=== PATIENT | male | born 1935 | race Caucasian/White ===

== ENCOUNTER 2016-04-08 12:26 | Emergency (ER) | payer MEDICARE, BC ==
[2016-04-08 12:32] VITALS: TEMP 98
[2016-04-08] MEDS ORDERED: SODIUM CHLORIDE 0.9% 500 ML IV STA (13:05)
[2016-04-08] MEDS ORDERED: HYDROmorphone 1 MG/ML 1 ML SYRINGE IVP STA (13:05)
[2016-04-08] MEDS ORDERED: ONDANSETRON 4 MG/2 ML VIAL IVP STA (13:05)
--- NOTE | 2016-04-08 13:08 | ED ---
General Adult HPI - General Chief complaint: Extremity Injury, Lower Stated complaint: Weakness Time Seen by Provider: 04/08/16 12:35 Source: patient, RN notes reviewed Mode of arrival: EMS Limitations: no limitations - History of Present Illness Initial comments: This is a 80-year-old male who is on hospice for his end-stage COPD. Patient got significantly weaker this morning was unable to get out of his chair to walk across the room so family called EMS and brought him into the emergency department. Patient states he also was having pain on his left thigh were used to have shingles and that is been chronic. Family states this happened once before and he had a urinary tract infection. Daughter states she's also had some mental status changes that are been intermittent and now he is at his baseline but earlier today he was not. Daughter states she has not noted any fever has not seen him coughing. There's been no vomiting or diarrhea. There' s been no recent injury or trauma that the family knows of. Patient does not complain of any chest pain patient is not complaining of any back pain. - Related Data Home Medications Medication Instructions Recorded Confirmed Aspirin 81 mg PO DAILY 12/08/14 04/08/16 Famotidine [Pepcid] 20 mg PO DAILY 12/08/14 04/08/16 Furosemide [Lasix] 80 mg PO BID 12/08/14 04/08/16 Ipratropium Nebulized [Atrovent 0.5 mg INHALATION RT-QID PRN 12/08/14 04/08/16 Nebulized] Isosorbide Mononitrate ER [Imdur] 30 mg PO DAILY 12/08/14 04/08/16 Lovastatin [Mevacor] 20 mg PO HS 12/08/14 04/08/16 glyBURIDE [Diabeta] 2.5 mg PO HS 12/08/14 04/08/16 Metolazone [Zaroxolyn] 2.5 mg PO TUFR 03/02/15 04/08/16 Gabapentin [Neurontin] 300 mg PO TID 01/09/16 04/08/16 Levothyroxine Sodium [Synthroid] 50 mcg PO DAILY 01/09/16 04/08/16 Albuterol Nebulized [Ventolin 2.5 mg INHALATION QID PRN 04/08/16 04/08/16 Nebulized] Allopurinol [Zyloprim] 300 mg PO DAILY 04/08/16 04/08/16 Amiodarone [Cordarone] 100 mg PO DAILY 04/08/16 04/08/16 Amitriptyline HCl [Elavil] 25 mg PO HS 04/08/16 04/08/16 PARoxetine HCL [Paxil] 30 mg PO DAILY 04/08/16 04/08/16 Potassium Chloride [Klor-Con 20] 20 meq PO DAILY 04/08/16 04/08/16 Warfarin [Coumadin] 5 mg PO SUMOWETHSA 04/08/16 04/08/16 Warfarin [Coumadin] 5 mg PO TUFR 04/08/16 04/08/16 fentaNYL 25MCG/HR PATCH [Duragesic 1 patch TRANSDERM Q72H 04/08/16 04/08/16 25MCG/HR] metFORMIN HCL [Glucophage] 1,000 mg PO DAILY 04/08/16 04/08/16 metFORMIN HCL [Glucophage] 500 mg PO HS 04/08/16 04/08/16 Previous Rx's Medication Instructions Recorded ALPRAZolam [Xanax] 0.5 mg PO BID #20 tab 01/12/16 Allergies Allergy/AdvReac Type Severity Reaction Status Date / Time No Known Allergies Allergy Verified 04/08/16 13:18 Review of Systems ROS Statement: Those systems with pertinent positive or pertinent negative responses have been documented in the HPI. ROS Other: All systems not noted in ROS Statement are negative. Past Medical History Past Medical History: Atrial Fibrillation, Coronary Artery Disease (CAD), Cancer , Heart Failure, COPD, Diabetes Mellitus, GERD/Reflux, Hyperlipidemia, Hypertension, Osteoarthritis (OA), Sleep Apnea/CPAP/BIPAP, Thyroid Disorder Additional Past Medical History / Comment(s): HAS CURRENT WOUND ON RIGHT SIDE OF NOSE, AND SKYLAR LEGS, BEING TX WITH TOPICAL OINT. hypoventilation syndrome/ pickwickian syndrome and right-sided heart failure/cor pulmonale, gout, hiatal hernia, chronic hypoxic respiratory failure maintain oxygen 5-6 L/m nasal cannula, peripheral vascular disease, HX OF SKIN CA, USES BIPAP History of Any Multi-Drug Resistant Organisms: VRE Date of last positivie culture/infection: 11/03/14 MDRO Source:: Left Leg Past Surgical History: Coronary Bypass/CABG, Heart Catheterization, Orthopedic Surgery Additional Past Surgical History / Comment(s): HYDROCELE, AAA REPAIR, TRIPLE VESSEL CABG APPROX 24 YEARS AGO,SKIN CANCER REMOVED.SKYLAR CATARACT SX, LT ROTATOR CUFF Past Anesthesia/Blood Transfusion Reactions: No Reported Reaction Date of Last Stent Placement:: 1986 Past Psychological History: Anxiety, Depression Additional Psychological History / Comment(s): . Smoking Status: Former smoker Past Alcohol Use History: Rare Additional Past Alcohol Use History / Comment(s): SMOKED X 30 YEARS, QUIT 1990 Past Drug Use History: None Reported - Past Family History Daughter(s) Family Medical History: Cancer Additional Family Medical History / Comment(s): BREAST, LUNG Father Family Medical History: Cancer, Prostate Disorder Additional Family Medical History / Comment(s): PROSTATE CANCER Mother Family Medical History: No Reported History Additional Family Medical History / Comment(s): LIVED TO BE 89 General Exam - General Exam Comments Initial Comments: GENERAL: Patient is well-developed and well-nourished. Patient is nontoxic and well- hydrated and is in mild distress. ENT: Neck is soft and supple. No significant lymphadenopathy is noted. Oropharynx is clear. Moist mucous membranes. Neck has full range of motion without eliciting any pain. EYES: The sclera were anicteric and conjunctiva were pink and moist. Extraocular movements were intact and pupils were equal round and reactive to light. Eyelids were unremarkable. PULMONARY: Diminished breath sounds throughout CARDIOVASCULAR: There is a regular rate and rhythm without any murmurs gallops or rubs. ABDOMEN: Soft and nontender with normal bowel sounds. No palpable organomegaly was noted. There is no palpable pulsatile mass. SKIN: Skin is clear with no lesions or rashes and otherwise unremarkable. NEUROLOGIC: Patient is alert and oriented 2. Cranial nerves II through XII are grossly intact. Motor and sensory are also intact. Normal speech, volume and content. Symmetrical smile. MUSCULOSKELETAL: Normal extremities with adequate strength and full range of motion. Chronic bilateral cellulitis LYMPHATICS: No significant lymphadenopathy is noted PSYCHIATRIC: Normal psychiatric evaluation. Limitations: no limitations Course Vital Signs 04/08/16 04/08/16 04/08/16 12:28 14:52 14:56 Temperature 98.0 F Pulse Rate 62 79 Respiratory 17 18 Rate Blood Pressure 123/63 127/92 O2 Sat by Pulse 88 L 68 L 82 L Oximetry 01/22/17 01/22/17 15:15 15:29 Temperature Pulse Rate 79 85 Respiratory Rate Blood Pressure O2 Sat by Pulse Oximetry Medical Decision Making - Medical Decision Making EKG is a poor quality shows sinus rhythm at 65 beats a minute NV interval appears to be 06/05/2011 QRS is 120 QT interval 410 QTC is [address] segment elevations that I can note but it is significantly poor quality EKG. Patient became alert and more combative family called me in the room he took the oxygen off and ripped it off didn't want it and according to family he's DO NOT RESUSCITATE and if he doesn't want the oxygen they do not want to give him the oxygen. Patient was barely responsive and they said this was fine and they wanted the patient to be left alone and if he passes away he . I went back in the room the patient was no longer breathing his heart rate was in the low 20s and patient had no pulses. I spoke with I pronounced him at 3:58 PM. I spoke with Laura Vizcaino and she released the body. - Lab Data Result diagrams: 04/08/16 13:34 04/08/16 13:34 Lab Results 04/08/16 04/08/16 04/08/16 Range/Units 13:11 13:34 13:34 WBC 8.4 (3.8-10.6) k/uL RBC 4.56 (4.30-5.90) m/uL Hgb 14.3 (13.0-17.5) gm/dL Hct 43.2 (39.0-53.0) % MCV 94.8 (80.0-100.0) fL MCH 31.2 (25.0-35.0) pg MCHC 33.0 (31.0-37.0) g/dL RDW 15.7 H (11.5-15.5) % Plt Count 244 (150-450) k/uL Neutrophils % 70 % Lymphocytes % 18 % Monocytes % 7 % Eosinophils % 2 % Basophils % 1 % Neutrophils # 5.9 (1.3-7.7) k/uL Lymphocytes # 1.5 (1.0-4.8) k/uL Monocytes # 0.6 (0-1.0) k/uL Eosinophils # 0.1 (0-0.7) k/uL Basophils # 0.1 (0-0.2) k/uL PT (9.0-12.0) sec INR (<1.1) APTT (22.0-30.0) sec Sample Site ABG pH (7.35-7.45) ABG pCO2 (35-45) mmHg ABG pO2 (83-108) mmHg ABG HCO3 (21-25) mmol/L ABG Total CO2 (19-24) mmol/L ABG O2 Saturation (94-97) % ABG Base Excess mmol/L FiO2 % Sodium (137-145) mmol/L Potassium (3.5-5.1) mmol/L Chloride (98-107) mmol/L Carbon Dioxide (22-30) mmol/L Anion Gap mmol/L BUN (9-20) mg/dL Creatinine (0.66-1.25) mg/dL Est GFR (MDRD) Af Amer (>60 ml/min/1.73 sqM) Est GFR (MDRD) Non-Af (>60 ml/min/1.73 sqM) Glucose (74-99) mg/dL Calcium (8.4-10.2) mg/dL Magnesium (1.6-2.3) mg/dL Total Bilirubin (0.2-1.3) mg/dL AST (17-59) U/L ALT (21-72) U/L Alkaline Phosphatase (38-126) U/L Total Creatine Kinase 102 (55-170) U/L CK-MB (CK-2) 1.4 (0.0-2.4) ng/mL CK-MB (CK-2) Rel Index 1.4 Troponin I 0.064 H* (0.000-0.034) ng/mL NT-Pro-B Natriuret Pep pg/mL Total Protein (6.3-8.2) g/dL Albumin (3.5-5.0) g/dL Urine Color Light Yellow Urine Appearance Clear (Clear) Urine pH 7.0 (5.0-8.0) Ur Specific Concrete 1.005 (1.001-1.035) Urine Protein Negative (Negative) Urine Glucose (UA) Negative (Negative) Urine Ketones Negative (Negative) Urine Blood Negative (Negative) Urine Nitrate Negative (Negative) Urine Bilirubin Negative (Negative) Urine Urobilinogen <2.0 (<2.0) mg/dL Ur Leukocyte Esterase Negative (Negative) 04/08/16 04/08/16 04/08/16 Range/Units 13:34 13:34 13:34 WBC (3.8-10.6) k/uL RBC (4.30-5.90) m/uL Hgb (13.0-17.5) gm/dL Hct (39.0-53.0) % MCV (80.0-100.0) fL MCH (25.0-35.0) pg MCHC (31.0-37.0) g/dL RDW (11.5-15.5) % Plt Count (150-450) k/uL Neutrophils % % Lymphocytes % % Monocytes % % Eosinophils % % Basophils % % Neutrophils # (1.3-7.7) k/uL Lymphocytes # (1.0-4.8) k/uL Monocytes # (0-1.0) k/uL Eosinophils # (0-0.7) k/uL Basophils # (0-0.2) k/uL PT 12.3 H (9.0-12.0) sec INR 1.2 (<1.1) APTT 26.1 (22.0-30.0) sec Sample Site ABG pH (7.35-7.45) ABG pCO2 (35-45) mmHg ABG pO2 (83-108) mmHg ABG HCO3 (21-25) mmol/L ABG Total CO2 (19-24) mmol/L ABG O2 Saturation (94-97) % ABG Base Excess mmol/L FiO2 % Sodium 138 (137-145) mmol/L Potassium 3.4 L (3.5-5.1) mmol/L Chloride 83 L (98-107) mmol/L Carbon Dioxide 44 H* (22-30) mmol/L Anion Gap 11 mmol/L BUN 42 H (9-20) mg/dL Creatinine 1.35 H (0.66-1.25) mg/dL Est GFR (MDRD) Af Amer >60 (>60 ml/min/1.73 sqM) Est GFR (MDRD) Non-Af 51 (>60 ml/min/1.73 sqM) Glucose 198 H (74-99) mg/dL Calcium 9.5 (8.4-10.2) mg/dL Magnesium 1.6 (1.6-2.3) mg/dL Total Bilirubin 1.1 (0.2-1.3) mg/dL AST 23 (17-59) U/L ALT 33 (21-72) U/L Alkaline Phosphatase 74 (38-126) U/L Total Creatine Kinase (55-170) U/L CK-MB (CK-2) (0.0-2.4) ng/mL CK-MB (CK-2) Rel Index Troponin I (0.000-0.034) ng/mL NT-Pro-B Natriuret Pep 2910 pg/mL Total Protein 7.2 (6.3-8.2) g/dL Albumin 3.9 (3.5-5.0) g/dL Urine Color Urine Appearance (Clear) Urine pH (5.0-8.0) Ur Specific Concrete (1.001-1.035) Urine Protein (Negative) Urine Glucose (UA) (Negative) Urine Ketones (Negative) Urine Blood (Negative) Urine Nitrate (Negative) Urine Bilirubin (Negative) Urine Urobilinogen (<2.0) mg/dL Ur Leukocyte Esterase (Negative) 04/08/16 Range/Units 15:10 WBC (3.8-10.6) k/uL RBC (4.30-5.90) m/uL Hgb (13.0-17.5) gm/dL Hct (39.0-53.0) % MCV (80.0-100.0) fL MCH (25.0-35.0) pg MCHC (31.0-37.0) g/dL RDW (11.5-15.5) % Plt Count (150-450) k/uL Neutrophils % % Lymphocytes % % Monocytes % % Eosinophils % % Basophils % % Neutrophils # (1.3-7.7) k/uL Lymphocytes # (1.0-4.8) k/uL Monocytes # (0-1.0) k/uL Eosinophils # (0-0.7) k/uL Basophils # (0-0.2) k/uL PT (9.0-12.0) sec INR (<1.1) APTT (22.0-30.0) sec Sample Site LRAD ABG pH 7.40 (7.35-7.45) ABG pCO2 64 H (35-45) mmHg ABG pO2 59 L (83-108) mmHg ABG HCO3 39 H (21-25) mmol/L ABG Total CO2 41 H (19-24) mmol/L ABG O2 Saturation 89.0 L (94-97) % ABG Base Excess 13.6 mmol/L FiO2 100 % Sodium (137-145) mmol/L Potassium (3.5-5.1) mmol/L Chloride (98-107) mmol/L Carbon Dioxide (22-30) mmol/L Anion Gap mmol/L BUN (9-20) mg/dL Creatinine (0.66-1.25) mg/dL Est GFR (MDRD) Af Amer (>60 ml/min/1.73 sqM) Est GFR (MDRD) Non-Af (>60 ml/min/1.73 sqM) Glucose (74-99) mg/dL Calcium (8.4-10.2) mg/dL Magnesium (1.6-2.3) mg/dL Total Bilirubin (0.2-1.3) mg/dL AST (17-59) U/L ALT (21-72) U/L Alkaline Phosphatase (38-126) U/L Total Creatine Kinase (55-170) U/L CK-MB (CK-2) (0.0-2.4) ng/mL CK-MB (CK-2) Rel Index Troponin I (0.000-0.034) ng/mL NT-Pro-B Natriuret Pep pg/mL Total Protein (6.3-8.2) g/dL Albumin (3.5-5.0) g/dL Urine Color Urine Appearance (Clear) Urine pH (5.0-8.0) Ur Specific Concrete (1.001-1.035) Urine Protein (Negative) Urine Glucose (UA) (Negative) Urine Ketones (Negative) Urine Blood (Negative) Urine Nitrate (Negative) Urine Bilirubin (Negative) Urine Urobilinogen (<2.0) mg/dL Ur Leukocyte Esterase (Negative) Disposition Clinical Impression: Cardiopulmonary arrest Disposition: Time of Disposition: 16:01 Preliminary Cause of : Cardiopulmonary arrest
[2016-04-08 13:27] LABS: Appearance,Urine Clear (Clear); Bilirubin,Urine Negative (Negative); Glucose,Urine (UA) Negative (Negative); Ketones,Urine Negative (Negative); Leukocyte Esterase,Urine Negative (Negative); Nitrite,Urine Negative (Negative); Protein,Urine Negative (Negative); Specific Gravity,Urine 1.005 (1.001-1.035); UA Billing (MACRO vs. MICRO) CHEM; Urobilinogen,Urine <2.0 mg/dL (<2.0)
[2016-04-08 13:51] LABS: Basophils # (A) 0.1 k/uL (0-0.2); Basophils % (A) 1 %; CH 31.6; CHCM 33.5; Eosinophils # (A) 0.1 k/uL (0-0.7); Eosinophils % (A) 2 %; HCT 43.2 % (39.0-53.0); HDW 3.08; HGB 14.3 gm/dL (13.0-17.5); Luc # (Auto) 0.16; Luc % (Auto) 2; Lymphocytes # (A) 1.5 k/uL (1.0-4.8); Lymphocytes % (A) 18 %; MCH 31.2 pg (25.0-35.0); MCV 94.8 fL (80.0-100.0); Mean Platelet Volume 7.4; Monocytes # (A) 0.6 k/uL (0-1.0); Monocytes % (A) 7 %; Neutrophils # (A) 5.9 k/uL (1.3-7.7); Neutrophils % (A) 70 %; RBC 4.56 m/uL (4.30-5.90); RDW 15.7 % (11.5-15.5); WBC 8.4 k/uL (3.8-10.6)
[2016-04-08 13:55] LABS: ALT 33 U/L (21-72); AST 23 U/L (17-59); Alkaline Phosphatase 74 U/L (38-126); Blood Urea Nitrogen 42 mg/dL (9-20); Calcium 9.5 mg/dL (8.4-10.2); Chloride 83 mmol/L (98-107); Glucose 198 mg/dL (74-99); Magnesium 1.6 mg/dL (1.6-2.3); Non-African American GFR(MDRD) 51 (>60 ml/min/1.73 sqM); Potassium 3.4 mmol/L (3.5-5.1); Sodium 138 mmol/L (137-145); Total Bilirubin 1.1 mg/dL (0.2-1.3); Total Protein 7.2 g/dL (6.3-8.2)
[2016-04-08 14:01] LABS: Anion Gap 11 mmol/L
--- NOTE | 2016-04-08 14:12 | CT ---
EXAMINATION TYPE: CT brain wo con DATE OF EXAM: 04/08/2016 2:05 PM COMPARISON: NONE HISTORY: weakness, altered mental status CT DLP: 1038.0 mGycm Automated exposure control for dose reduction was used. FINDINGS: There is no acute intracranial hemorrhage, mass effect, or midline shift identified. The ventricles and sulci are within normal limits in size. Cerebral vascular calcifications are noted. There is sho ical atrophy. White matter demyelination change present in the periventricular locations. The globes are intact and the visualized sinuses are remarkable for minimal mucosal disease in the right maxilla ry sinus.. IMPRESSION: No acute intracranial hemorrhage, mass effect, or midline shift is seen.
[2016-04-08 14:16] LABS: Carbon Dioxide 44 mmol/L (22-30); INR 1.2 (<1.1); Partial Thromboplastin Time 26.1 sec (22.0-30.0); Prothrombin Time 12.3 sec (9.0-12.0)
--- NOTE | 2016-04-08 14:22 | XR ---
EXAMINATION TYPE: XR chest 2V DATE OF EXAM: 04/08/2016 2:08 PM COMPARISON: Prior chest x-ray 09 January 2016 HISTORY: Weakness, altered mental status TECHNIQUE: Frontal and lateral views of the chest are obtained. FINDINGS: Patient is post median sternotomy. The heart is enlarged. Central vascularity and intersti tium are increased. There is chronic elevation of the right hemidiaphragm. No evident pneumothorax. IMPRESSION: Correlate for pulmonary venous hypertension and interstitial edema
[2016-04-08 14:23] LABS: Creatine Kinase MB 1.4 ng/mL (0.0-2.4)
[2016-04-08 14:26] LABS: Troponin I 0.064 ng/mL (0.000-0.034)
[2016-04-08] MEDS ORDERED: IPRATROPIUM-ALBUTEROL 3 ML NEB INHALATION STA (14:53)
[2016-04-08] MEDS ORDERED: FUROSEMIDE 10 MG/ML 10 ML VIAL IV STA (14:54)
[2016-04-08 14:55] VITALS: BP 127/92; RESP 18
[2016-04-08 15:20] LABS: ABG Base Excess 13.6 mmol/L; ABG HCO3 39 mmol/L (21-25); ABG PCO2 64 mmHg (35-45); ABG PO2 59 mmHg (83-108); ABG TCO2 41 mmol/L (19-24)
[2016-04-08 15:30] VITALS: PULSE 85
== END 2016-04-08 18:15 | disposition expired ==
LOC: EC 12:26
DX: I46.9 Cardiac arrest, cause unspecified (principal); J44.9 Chronic obstructive pulmonary disease, unspecified; I48.91 Unspecified atrial fibrillation; I25.10 Atherosclerotic heart disease of native coronary artery without angina pectoris; I10 Essential (primary) hypertension; K21.9 Gastro-esophageal reflux disease without esophagitis; E78.5 Hyperlipidemia, unspecified; I50.9 Heart failure, unspecified; E11.9 Type 2 diabetes mellitus without complications; M19.90 Unspecified osteoarthritis, unspecified site; E07.9 Disorder of thyroid, unspecified; F41.9 Anxiety disorder, unspecified; F32.9 Major depressive disorder, single episode, unspecified; Z79.899 Other long term (current) drug therapy; Z87.891 Personal history of nicotine dependence; Z79.84 Long term (current) use of oral hypoglycemic drugs; Z79.82 Long term (current) use of aspirin; Z79.01 Long term (current) use of anticoagulants; Z98.61 Coronary angioplasty status; Z95.1 Presence of aortocoronary bypass graft
CPT/HCPCS: 36415; 94640; 93005; 83880; 80053; 82550; 82553; 82805; 83735; 84484; 85025; 85610; 85730; 81003; 71020; 70450; 99285; 96374; 96375; 96361; J1940; J2405; J1170